=== PATIENT | female | born 1970 | race Hispanic/Latino ===

== ENCOUNTER 2021-01-26 02:32 | Emergency (ER) | payer MEDICAID, OTHER ==
[2021-01-26] MEDS ORDERED: KETOROLAC 30MG VIAL (30MG/ML) ONE (03:21)
== END 2021-01-26 03:38 | disposition home or self-care (01) ==
LOC: EDH 02:32
DX: R51.9 Headache, unspecified (principal); I10 Essential (primary) hypertension
CPT/HCPCS: 96372; 99283; J1885